=== PATIENT | female | born 1960 | race African-American/Black ===

== ENCOUNTER 2019-07-13 00:26 | Emergency (ER) | payer OTHER ==
[~2019-07-13] VITALS: Ht 180.3 cm; Wt 86.0 kg
[~2019-07-13 00:26] MED LIST: ACET1TAB14 PO; ALBU6.7H INH; DIVA-18 PO; FLUT1DIS5 INH; IBUP-2030 PO; S350 PO
[2019-07-13] MEDS ORDERED: KETOROLAC 30MG/ML VIAL IM ONE (03:30)
[2019-07-13 05:00] VITALS: BP 147/78
[2019-07-13] MEDS ORDERED: ACETAMINOPHEN WITH CODEINE 300/30MG TABLET PO ONE (05:15)
== END 2019-07-13 04:55 | disposition home or self-care (01) ==
LOC: ER 00:26
DX: S16.1XXA Strain of muscle, fascia and tendon at neck level, initial encounter (principal); M54.5 Low back pain; M25.562 Pain in left knee; F17.200 Nicotine dependence, unspecified, uncomplicated; Z79.899 Other long term (current) drug therapy; V49.9XXA Car occupant (driver) (passenger) injured in unspecified traffic accident, initial encounter; Y93.89 Activity, other specified; Y92.89 Other specified places as the place of occurrence of the external cause; Y99.8 Other external cause status
CPT/HCPCS: 72100; 72125; 73562; 96372; 99284; J1885